=== PATIENT | male | born 1960 | race Caucasian/White ===

== ENCOUNTER 2017-03-01 15:34 | Emergency (ER) | payer BC ==
[2017-03-01] MEDS ORDERED: DIPH,PERTUS(ACELL)TETVAC-LF 0.5 ML VIAL IM ONE (15:57)
--- NOTE | 2017-03-01 16:01 | ED ---
Upper Extremity HPI - General Chief Complaint: Extremity Injury, Upper Stated Complaint: Hand Injury Time Seen by Provider: 03/01/17 15:49 Source: patient, RN notes reviewed, old records reviewed Mode of arrival: ambulatory Limitations: no limitations - History of Present Illness Initial Comments: Patient is a 48-year-old male with chief complaint of laceration over the fifth and fourth left proximal fingers. Patient reports that his hand got caught in a wall and floor tiler. Patient reports that he is right-handed. Patient states that he does have range of motion of his fingers. He states that the laceration extends from the fifth to the fourth finger at the base of the fingers. As well as the second laceration over the anterior proximal 5th digit. Patient states that he has full range of motion of his fingers. - Related Data Home Medications Medication Instructions Recorded Confirmed Atorvastatin [Lipitor] 40 mg PO HS 01/25/16 03/01/17 Escitalopram Oxalate [Lexapro] 20 mg PO DAILY 01/25/16 03/01/17 amLODIPine BESYLATE/BENAZEPRIL 1 cap PO DAILY 01/25/16 03/01/17 [Lotrel 5-20 mg Capsule] Aspirin/Acetaminophen/Caffeine 1 tab PO Q6H PRN 03/01/17 03/01/17 [Excedrin Extra Strength Caplet] Previous Rx's Medication Instructions Recorded Cephalexin [Keflex] 500 mg PO Q6HR #40 cap 03/01/17 HYDROcodone/APAP 10-325MG [[place] 1 tab PO Q6H PRN #20 tab 03/01/17 10-325] Allergies Allergy/AdvReac Type Severity Reaction Status Date / Time No Known Allergies Allergy Verified 03/01/17 16:12 Review of Systems ROS Statement: Those systems with pertinent positive or pertinent negative responses have been documented in the HPI. ROS Other: All systems not noted in ROS Statement are negative. Past Medical History Past Medical History: No Reported History History of Any Multi-Drug Resistant Organisms: None Reported Past Surgical History: Hernia Repair Past Psychological History: Anxiety Smoking Status: Never smoker Past Alcohol Use History: Daily Past Drug Use History: None Reported General Exam - General Exam Comments Initial Comments: Pleasant 56 year old male, no distress. Limitations: no limitations Head exam: Present: atraumatic, normocephalic, normal inspection Eye exam: Present: normal appearance, PERRL, EOMI. Absent: scleral icterus, conjunctival injection, periorbital swelling ENT exam: Present: normal exam, mucous membranes moist Neck exam: Present: normal inspection. Absent: tenderness, meningismus, lymphadenopathy Respiratory exam: Present: normal lung sounds bilaterally. Absent: respiratory distress, wheezes, rales, rhonchi, stridor Cardiovascular Exam: Present: regular rate, normal rhythm, normal heart sounds. Absent: systolic murmur, diastolic murmur, rubs, gallop, clicks GI/Abdominal exam: Present: soft, normal bowel sounds. Absent: distended, tenderness, guarding, rebound, rigid Extremities exam: Present: normal inspection, full ROM, normal capillary refill. Absent: tenderness, pedal edema, joint swelling, calf tenderness Left Forearm Wrist exam: Present: normal inspection, full ROM Hand L/R Front: 1 - laceration 2 - laceration (Skin removed, unable to fully close.) Back exam: Present: normal inspection Neurological exam: Present: alert, oriented X3, CN II-XII intact Psychiatric exam: Present: normal affect, normal mood Skin exam: Present: warm, dry, intact, normal color. Absent: rash Course Vital Signs 03/01/17 03/01/17 15:44 17:40 Temperature 97.6 F 98.5 F Pulse Rate 70 60 Respiratory 16 18 Rate Blood Pressure 151/80 129/87 O2 Sat by Pulse 99 98 Oximetry Procedures - Laceration Laceration #1 Site: hand (base of fourth finger ) Size (cm): 4 Description: linear Depth: simple, single layer Anesthetic Used: benzocaine 0.25% Anesthesia Technique: nerve block Amount (mls): 5 Pre-repair: wound explored, irrigated extensively Type of Sutures: nylon Size of Sutures: 6-0 Number of Sutures: 12 Technique: simple, interrupted Patient Tolerated Procedure: well, no complications Medical Decision Making - Medical Decision Making Patient is a 56 year old male with laceration over fourth and fifth fingers after hand was smashed in a wall and floor tiler. Patient has a fracture to proximal fifth phalanx. Patient given TDAP and 1g cefazolin IM. Wound was soaked with normal saline and soap, throughly irrigated. Sutures placed around fourth finger at the laceration, 12 sutures placed. No significant tendon involvement in jeither fingers. Fifth finger has no viable skin to close the wound, the wound was approximated with 7 absorbable vicryl sutures. Patient tolerated procedure well. Patient was placed in tube gauze around fifth finger and bacitration applied. Patient also given a metal splint. dressing applied around the fourth finger. Patientplaced on keflex and given pain medication. Patient advised to follow up with Dr. Zhao the hand surgeon on Friday. Patient agrees with treatment plan and will comply. Discussed remain in finger tube gauze and splint until orthopedic physicain appointment. Disposition Clinical Impression: Open fracture of finger of left hand, Finger laceration Disposition: HOME SELF-CARE Condition: Good Instructions: Hand Fracture (ED) Additional Instructions: Patient advised to follow-up with hand surgeon on Friday. Patient needs to keep the finger covered at all times. Take antibiotics as directed. Return to the emergency department if any alarming signs or symptoms occur. Prescriptions: Cephalexin [Keflex] 500 mg PO Q6HR #40 cap HYDROcodone/APAP 10-325MG [[place] 10-325] 1 tab PO Q6H PRN #20 tab PRN Reason: Pain Referrals: Patricio Senior MD [Primary Care Provider] - 1-2 days Chacorta Zhao DO [Doctor of Osteopathic Medicine] - 1-2 days Time of Disposition: 17:47
[2017-03-01] MEDS ORDERED: ceFAZolin 1,000 MG VIAL IM STA (16:16)
--- NOTE | 2017-03-01 16:33 | XR ---
EXAMINATION TYPE: XR hand complete LT DATE OF EXAM: 03/01/2017 4:07 PM COMPARISON: 07/11/2010 HISTORY: 56-year-old male with laceration to the fourth and fifth digits from 4 cm, pain. TECHNIQUE: 3 views FINDINGS: There is soft tissue injury to the fourth and fifth digits though with a minimally displaced oblique fracture of the fifth proximal phalanx extending from the midshaft and intra-articularly into the PIP joint. Suggestion of a small dorsal loose body at the radiocarpal joint. No additional acute fractur e or dislocation. IMPRESSION: Soft tissue injuries to the fourth and fifth digits with a minimally displaced oblique fracture of th e fifth proximal phalanx. Intra-articular extension of fracture into the fifth PIP joint.
[2017-03-01 17:41] VITALS: BP 129/87; PULSE 60; RESP 18; TEMP 98.5
== END 2017-03-01 17:58 | disposition home or self-care (01) ==
LOC: EC 15:34
DX: S62.617B Displaced fracture of proximal phalanx of left little finger, initial encounter for open fracture (principal); S61.215A Laceration without foreign body of left ring finger without damage to nail, initial encounter; F41.9 Anxiety disorder, unspecified; Z23 Encounter for immunization; Z79.899 Other long term (current) drug therapy; W31.89XA Contact with other specified machinery, initial encounter
CPT/HCPCS: 99283 ×2; 12002 ×2; 96372 ×2; 90471 ×2; 73130; 90715; J0690

== ENCOUNTER → 2019-02-11 | Outpatient (CLI) | payer BC ==
--- NOTE | 2019-02-11 18:34 | PN ---
PROGRESS NOTE DATE OF SERVICE: 02/11/2019 58-year-old gentleman has been followed in [facility] for treatment of obstructive sleep apnea-hypopnea syndrome. The patient continued to use his CPAP equipment every night, sometimes has problem because his nasal pillow mask is old and head gear stretched. [place] Sleepiness Scale today is increased to 15. MEDICATIONS: Lexapro, Lotrel, atorvastatin. PHYSICAL EXAM: Patient in no distress. BP 122/81, HR 57, RR 14, height 5 feet 9 and one half inches, weight 191.8 pounds with a body mass index 27.8, temperature 97.2, oxygen saturation at room air 96%. OROPHARYNX: Low position of soft palate, Mallampati 2-3. Neck Supple, no JVD. Thyroid is not palpable. LUNGS Clear to percussion and to auscultation. Good air exchange. No wheezing or rhonchi. HEART S1, S2 regular. No murmurs, gallops, or rubs. ABDOMEN Soft and nontender. Bowel sounds are present. No organomegaly appreciated. EXTREMITIES No clubbing or cyanosis. 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 Cranial nerves 2 to 7 intact. There is no fasciculation or atrophy. noted. No focal deficits observed. IMPRESSION: 1. Obstructive sleep apnea-hypopnea syndrome. The patient continued to use CPAP equipment, benefitting from treatment. 2. History of anxiety. 3. Hyperlipidemia. 4. History of nasal septum deviation. 5. Hypertension. PLAN: 1. Patient will continue to use CPAP equipment every night for the whole night. 2. Prescription for all necessary CPAP supplies including nasal pillow mask, tube, filters. 3. Sleep hygiene with regular time in bed for at least 8 hours. 4. No driving if feeling sleepiness. Thank you very much for allowing me to participate in management of your patient. Sincerely, Fadi Rivas MD, PhD, FAASM Diplomat of [employer] [employer] [place] [employer] Administration Vice President of [facility] [place] MMODL / IJN: [id number] /
== END | disposition home or self-care (01) ==
LOC: SLEEP 16:50
PROVIDERS: ATTEND Internal Medicine
DX: G47.33 Obstructive sleep apnea (adult) (pediatric) (principal); E78.5 Hyperlipidemia, unspecified; I10 Essential (primary) hypertension; F41.9 Anxiety disorder, unspecified; Z87.09 Personal history of other diseases of the respiratory system; Z99.89 Dependence on other enabling machines and devices; Z79.899 Other long term (current) drug therapy

== ENCOUNTER → 2019-04-08 | Outpatient (CLI) | payer BC ==
--- NOTE | 2019-04-08 20:07 | PN ---
PROGRESS NOTE DATE OF SERVICE: 04/08/2019 58-year-old gentleman who has been followed in Sleep Center for treatment of obstructive sleep apnea-hypopnea syndrome. Today is his first visit after he received new CPAP unit. The patient is able to use CPAP equipment every night for the whole night without significant problem except sometimes he feels that his mouth is dry. He is using a nasal pillow mask. I checked his CPAP unit, range of the pressure 5-10. Most of the time pressure is 8.8 cm of water. Usage is 100% of the time more than 4 hours, average 7.7 hours per night. Leak is 28 L/minute which is slightly high for the nasal pillow mask and possibly indicates the patient opening his mouth. Apnea-hypopnea index 2.3, which is absolutely normal. MEDICATIONS: Lexapro, Lotrel and atorvastatin. PHYSICAL EXAM: Patient in no distress. BP 110/72, HR 59, RR 14, weight 194.6, temperature 97.9. Oxygen saturation at room air 94%. Oropharynx: Low position of soft palate, Mallampati 2-3. Neck Supple, no JVD. Thyroid is not palpable. LUNGS Clear to percussion and to auscultation. Good air exchange. No wheezing or rhonchi. HEART S1, S2 regular. No murmurs, gallops, or rubs. ABDOMEN Soft and nontender. Bowel sounds are present. No organomegaly appreciated. EXTREMITIES No clubbing or cyanosis. 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 Cranial nerves 2 to 7 intact. There is no fasciculation or atrophy. noted. No focal deficits observed. IMPRESSION: 1. Obstructive sleep apnea-hypopnea syndrome. The patient demonstrated 100% compliance with treatment benefitting from treatment. 2. History of anxiety. 3. Hyperlipidemia. 4. History of nasal septum deviation. 5. Hypertension. PLAN: 1. Patient will continue to use CPAP equipment every night. 2. Prescription for additional chinstrap to prevent opening mouth during the sleep. 3. Sleep hygiene with regular time for at least 8 hours. 4. No driving if feeling sleepiness. 5. Patient continues to feel sleepy. [place] Sleepiness Scale today is 18. 6. If patient will continue to feel sleepy, may consider to proceed with polysomnogram and multiple sleep latency test for objective evaluation of his sleepiness, rule out any additional diagnosis of hypersomnia. Thank you very much for allowing me to participate in management of patient. Sincerely, Fadi Rivas MD, PhD, FAASM Diplomat of [place] [employer] [place] [employer] Products Mechanical Design Engineer of [facility] [place] NEAL / MARTINEZ: [id number] /
== END | disposition home or self-care (01) ==
LOC: SLEEP 16:41
PROVIDERS: ATTEND Internal Medicine
DX: G47.33 Obstructive sleep apnea (adult) (pediatric) (principal); E78.5 Hyperlipidemia, unspecified; I10 Essential (primary) hypertension; F41.9 Anxiety disorder, unspecified; Z87.09 Personal history of other diseases of the respiratory system; Z99.89 Dependence on other enabling machines and devices; Z79.899 Other long term (current) drug therapy

== ENCOUNTER → 2019-12-15 | Outpatient (CLI) | payer BC ==
--- NOTE | 2019-12-15 17:34 | PN ---
PROGRESS NOTE DATE OF SERVICE: 12/15/2019 59-year-old gentleman has been followed in Sleep Center for treatment of obstructive sleep apnea-hypopnea syndrome and excessive daytime sleepiness. Presently, patient continued to use his CPAP equipment every night for the whole night. No snoring with the machine, but he still feels sleepiness sometimes during the day. [place] Sleepiness Scale today increased to 12. Presently, we proceeded with CPAP at night followed by multiple sleep latency test and I discussed results of the sleep study with patient in detail. During CPAP titration high pressure was 11 cm of water. At that pressure, the patient respiration was fully normalized. Apnea-hypopnea index was 0. On the following day, patient had 5 naps. He fell asleep on first 3 naps, but did not fall asleep from last two naps. 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 I checked the patient CPAP unit, range of the pressure 5-10 cm of water. Usage is 30 out of 30 nights for more than 4 hours with average usage is 7.6 hours per night. Average pressure is 9 cm of water. Leak is 32 L/minute. The apnea-hypopnea index reading is 2.7. Occasionally patient might open his mouth. Patient using AirFit P10 nasal pillow mask. MEDICATIONS: Lexapro and Lotrel in the morning, Atorvastatin at night. PHYSICAL EXAM: Patient in no distress. BP 128/81, HR 62, RR 16, height 5 feet 10-1/2 inches, weight 196.4, body mass index 27.7, temperature 97.0, oxygen saturation at room air 96%. Oropharynx: Low position of soft palate. Mallampati 3. NECK: Supple, no JVD. Thyroid is not palpable. LUNGS: Clear to percussion and to auscultation. Good air exchange. No wheezing or rhonchi. HEART: S1, S2 regular. No murmurs, gallops, or rubs. ABDOMEN: Soft and nontender. Bowel sounds are present. No organomegaly appreciated. EXTREMITIES: No clubbing or cyanosis. CUT OFF SAWYER LOG: Awake, alert, and oriented X3. Cranial nerves 2 to 7 intact. There is no fasciculation or atrophy. noted. No focal deficits observed. IMPRESSION: 1. Obstructive sleep apnea-hypopnea syndrome. The patient demonstrated great compliance with treatment benefitting from treatment. 2. Slightly high leak reading from the machine for the usage of nasal pillow mask. Possibly patient opens his mouth. 3. 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 Subsequently, the MSLT could not fully rule out hypersomnia, especially with also finding 1 sleep onset REM period. 4. History of anxiety. 5. Hyperlipidemia. 6. History of nasal septum deviation. 7. Hypertension. PLAN: 1. Patient will continue to use CPAP equipment every night for the whole night. 2. Prescription for the chinstrap. The patient will monitor for leak, possibly adjustment of head gear for AirFit P10. 3. I will change range of the pressure in the machine from 8-11 range. 4. We still may consider to use medications to prevent any excessive daytime sleepiness in the future. 5. Patient will try to take Lexapro in the evening instead of morning time. Thank you very much for allowing me to participate in management of your patient. Sincerely, Fadi Rivas MD, PhD, FAASM Diplomat of [place] [employer] [place] [employer] Customer Facilities Supervisor of [facility] [place] MMODL / FAUSTINAN: [phone] /
== END | disposition home or self-care (01) ==
LOC: SLEEP 16:21
PROVIDERS: ATTEND Internal Medicine
DX: G47.33 Obstructive sleep apnea (adult) (pediatric) (principal); E78.5 Hyperlipidemia, unspecified; I10 Essential (primary) hypertension; Z87.39 Personal history of other diseases of the musculoskeletal system and connective tissue; Z86.59 Personal history of other mental and behavioral disorders; Z99.89 Dependence on other enabling machines and devices; Z79.899 Other long term (current) drug therapy

== ENCOUNTER 2020-08-05 20:37 | Emergency (ER) | payer BC ==
[2020-08-05 20:42] VITALS: BP 138/82; PULSE 67; RESP 20; TEMP 97.9
[2020-08-05] MEDS ORDERED: LIDOCAINE/EPINEPHR/TETRACAINE 5 ML BOTTLE TOPICAL ONE (20:47)
[2020-08-05] MEDS ORDERED: AMOXIC-POT CLAV 875MG STARTER PACK 2 TAB BTL PO STA (20:47)
--- NOTE | 2020-08-05 20:51 | ED ---
Animal Bite HPI - General Chief Complaint: Animal Bite Stated Complaint: Dog Bite Time Seen by Provider: 08/05/20 20:43 Source: patient Mode of arrival: ambulatory Limitations: no limitations - History of Present Illness Initial Comments: 60-year-old male presented for right cheek dog bite. Patient states just prior to arrival his vaccinated indoor dog bit the right side of his face. He states that dog is a rescue and can be crabby. Denies through and through cheek lesion. Patient states he was not sure if he needed sutures or not and thus presented to [facility] ER. Patient states that hsi tdap is for sure updated in the last 5-10 yeats. Denies other areas of injury or complaint. Patient appears well nontoxic in no acute distress. - Related Data Home Medications Medication Instructions Recorded Confirmed Atorvastatin [Lipitor] 40 mg PO HS 01/25/16 03/01/17 Escitalopram Oxalate [Lexapro] 20 mg PO DAILY 01/25/16 03/01/17 amLODIPine BESYLATE/BENAZEPRIL 1 cap PO DAILY 01/25/16 03/01/17 [Lotrel 5-20 mg Capsule] Aspirin/Acetaminophen/Caffeine 1 tab PO Q6H PRN 03/01/17 03/01/17 [Excedrin Extra Strength Caplet] Previous Rx's Medication Instructions Recorded Cephalexin [Keflex] 500 mg PO Q6HR #40 cap 03/01/17 HYDROcodone/APAP 10-325MG [[place] 1 tab PO Q6H PRN #20 tab 03/01/17 10-325] Amoxicillin/Potassium Clav 1 tab PO Q12HR 7 Days #14 tab 08/05/20 [Augmentin 875-125 Tablet] Allergies Allergy/AdvReac Type Severity Reaction Status Date / Time No Known Allergies Allergy Verified 08/05/20 20:42 Review of Systems ROS Statement: Those systems with pertinent positive or pertinent negative responses have been documented in the HPI. ROS Other: All systems not noted in ROS Statement are negative. Past Medical History Past Medical History: No Reported History History of Any Multi-Drug Resistant Organisms: None Reported Past Surgical History: Hernia Repair Past Psychological History: Anxiety Smoking Status: Never smoker Past Alcohol Use History: Daily Past Drug Use History: None Reported General Exam - General Exam Comments Initial Comments: General: The patient is awake and alert, in no distress, and does not appear acutely ill. Eye: Pupils are equal, round and reactive to light, extra-ocular movements are intact. No nystagmus. There is normal conjunctiva bilaterally. No signs of icterus. Ears, nose, mouth and throat: There are moist mucous membranes and no oral lesions. Musculoskeletal: Normal ROM, no tenderness. Strength 5/5. Sensation intact. Pulses equal bilaterally 2+. Neurological: A&O x 3. CN II-XII intact grossly, There are no obvious motor or sensory deficits. Coordination appears grossly intact. Speech is normal. Skin: Skin is warm and dry and no rashes, v shaped laceration of the right cheek just lateral to the corner of the mouth. no throught and through injury. there is just superior to main laceration,small more superficial laceration. Psychiatric: Cooperative, appropriate mood & affect, normal judgment. Limitations: no limitations Course Vital Signs 08/05/20 20:40 Temperature 97.9 F Pulse Rate 67 Respiratory 20 Rate Blood Pressure 138/82 O2 Sat by Pulse 98 Oximetry Procedures - Laceration Laceration #1 Consent Obtained: verbal consent Indication: laceration Site: face Size (cm): 2 Description: irregular Depth: simple, single layer Pre-repair: wound explored, irrigated extensively, deep structures intact Type of Sutures: nylon Size of Sutures: 6-0 Number of Sutures: 3 Technique: simple, interrupted Patient Tolerated Procedure: well, no complications Medical Decision Making - Medical Decision Making 60yo male presenting for cc of dog bite to face, tdap UTD. Wound edges dont approximate naturally wants sutures despite infection risk Used topical LET. Closed wound after irrigation/cleansing with iodine. Patient tolerated procedure well. Abx initiated. Discussed case with Dr. Kaufman who is agreeable to care plan and discharge-pt agreeable to care plan and discharge. Disposition Clinical Impression: Dog bite of face Disposition: HOME SELF-CARE Instructions (If sedation given, give patient instructions): Animal Bite (ED) Additional Instructions: Please use medication as discussed. Please follow-up with family doctor in the next 2 days. Return for suture removal here in 5 days. Watch for infection. Please return to emergency room if the symptoms increase or worsen or for any other concerns. Prescriptions: Amoxicillin/Potassium Clav [Augmentin 875-125 Tablet] 1 tab PO Q12HR 7 Days #14 tab Is patient prescribed a controlled substance at d/c from ED?: No Referrals: Senior,Patricio, MD [Primary Care Provider] - 1-2 days Time of Disposition: 22:22
== END 2020-08-05 22:38 | disposition home or self-care (01) ==
LOC: EC 20:37
DX: S01.451A Open bite of right cheek and temporomandibular area, initial encounter (principal); F41.9 Anxiety disorder, unspecified; Z79.899 Other long term (current) drug therapy; W54.0XXA Bitten by dog, initial encounter; Y92.009 Unspecified place in unspecified non-institutional (private) residence as the place of occurrence of the external cause
CPT/HCPCS: 12011; 99283

== ENCOUNTER → 2022-01-03 | Outpatient (CLI) | payer BC ==
[2022-01-03 18:23] LABS: HCT 44.9 % (39.6-50.0); HGB 14.8 g/dL (13.0-17.0); MCH 30.6 pg (27.0-32.0); MCV 92.8 fL (80.0-97.0); Mean Platelet Volume 9.8 fL (9.5-12.2); NRBC Per 100 WBC 0 /100 WBCS (0.0-0.0); Platelet Count 273 X 10*3/uL (140-440); RBC 4.84 X 10*6/uL (4.40-5.60); WBC 7.55 X 10*3/uL (4.50-10.00)
[2022-01-03 18:33] LABS: African American GFR (CKD) 82.4 (60.0-200.0); Anion Gap 12.1 mmol/L (10.00-18.00); Blood Urea Nitrogen 17.9 mg/dL (9.0-27.0); Carbon Dioxide 25.9 mmol/L (20.0-27.5); Non-African American GFR(CKD) 71.1 (60.0-200.0); Potassium 4.3 mmol/L (3.5-5.5)
[2022-01-04 12:38] LABS: Coronavirus SARS CoV-2 Not Detected (Not Detected)
== END | disposition home or self-care (01) ==
LOC: LABPAT 12:46
PROVIDERS: ATTEND Internal Medicine Interventional Cardiology
DX: Z01.812 Encounter for preprocedural laboratory examination (principal); Z20.822 Contact with and (suspected) exposure to COVID-19; I48.11 Longstanding persistent atrial fibrillation
CPT/HCPCS: 80051; 82565; 84520; 85027; 36415; U0003; C9803; U0005

== ENCOUNTER 2022-01-11 08:07 | Day surgery (SDC) | payer BC ==
[2022-01-09 10:58] VITALS: BMI 27.2
[~2022-01-11 08:07] MED LIST: SODIUM CHLORIDE 0.9% 1,000 ML IV SCH
[2022-01-11 09:18] VITALS: TEMP 98
[2022-01-11] MEDS ORDERED: PROPOFOL 10 MG/ML 20 ML VIAL IV ONE (09:25)
[2022-01-11] MEDS ORDERED: MIDAZOLAM 2 MG/2 ML VIAL ONE (09:25)
[2022-01-11] MEDS ORDERED: PANTOPRAZOLE 40 MG TABLET PO PRN (09:49)
[2022-01-11] MEDS ORDERED: LORazepam 0.5 MG TAB PO PRN (09:49)
--- NOTE | 2022-01-11 09:54 | P.PCN ---
Date of Procedure: 01/11/22 Description of Procedure: Indication: Atrial fibrillation, evaluation of left atrial appendage Procedure Description: After explaining the procedure to the patient, it's risk and complications, blood pressure, heart rate and O2 saturation were monitored. The throat was sprayed with Cetacaine. Patient received sedation per anesthesia department. The probe was introduced into the esophagus without difficulty. Images were obtained. Following that, the probe was removed. There was no immediate complication. Findings: Left atrial size is dilated, left atrial appendage shows a thrombus. Left ventricle size is normal mild global hypokinesis was noted. Ejection fraction 45-50%. The aortic valve, mitral valve and tricuspid valve are normal. Descending thoracic aorta is normal. No pericardial effusion was noted. Contrast bubble study revealed no shunting across the intra-atrial septum. doppler: Pulse wave and color Doppler were obtained and showed moderate mitral was mild aortic and tricuspid regurgitation. There was no shunting across the intra- atrial septum. Conclusion: 1. Dilated left atrium with left atrial appendage thrombus 2. Mildly impaired systolic function with global hypokinesis 3. Moderate mitral regurgitation 4. Mild aortic and tricuspid regurgitation 5. No shunting across the intra-atrial septum.
[2022-01-11] MEDS ORDERED: SODIUM CHLORIDE 0.9% 1,000 ML IV SCH (10:00)
[2022-01-11 10:05] VITALS: RESP 18
[2022-01-11 11:04] VITALS: BP 114/79; PULSE 83
[2022-01-11] MEDS ORDERED: RIVAROXABAN 20 MG TAB PO SCH (21:00)
[2022-01-11] MEDS ORDERED: ESCITALOPRAM 20 MG TAB PO SCH (21:00)
[2022-01-11] MEDS ORDERED: ATORVASTATIN 40 MG TAB PO SCH (21:00)
[2022-01-11] MEDS ORDERED: METOPROLOL TARTRATE 50 MG TAB PO SCH (21:00)
[2022-01-12] MEDS ORDERED: LISINOPRIL-HCTZ 20-12.5 MG 1 EACH TAB PO SCH (09:00)
== END 2022-01-11 11:33 | disposition home or self-care (01) ==
LOC: CATHCVL 08:07
PROVIDERS: ATTEND Internal Medicine Interventional Cardiology
DX: I08.3 Combined rheumatic disorders of mitral, aortic and tricuspid valves (principal); I10 Essential (primary) hypertension; E78.5 Hyperlipidemia, unspecified; G47.33 Obstructive sleep apnea (adult) (pediatric); Z87.891 Personal history of nicotine dependence; I73.00 Raynaud's syndrome without gangrene; K21.9 Gastro-esophageal reflux disease without esophagitis; Z79.01 Long term (current) use of anticoagulants; Z79.899 Other long term (current) drug therapy
CPT/HCPCS: 93312; 93320; 93325; J2250; J2704

== ENCOUNTER → 2022-02-12 | Outpatient (CLI) | payer BC ==
[2022-02-12 22:30] LABS: HCT 41.5 % (39.6-50.0); MCH 31.1 pg (27.0-32.0); MCHC 33.7 g/dL (32.0-37.0); MCV 92.2 fL (80.0-97.0); Mean Platelet Volume 9.7 fL (9.5-12.2); NRBC Per 100 WBC 0 /100 WBCS (0.0-0.0); Platelet Count 269 X 10*3/uL (140-440); RDW 12.5 % (11.5-14.5); WBC 5.54 X 10*3/uL (4.50-10.00)
[2022-02-12 23:23] LABS: African American GFR (CKD) 76.4 (60.0-200.0); Anion Gap 14.3 mmol/L (10.00-18.00); Blood Urea Nitrogen 16.3 mg/dL (9.0-27.0); Carbon Dioxide 24.9 mmol/L (20.0-27.5); Potassium 4.4 mmol/L (3.5-5.5)
== END | disposition home or self-care (01) ==
LOC: LABPAT 16:08
PROVIDERS: ATTEND Internal Medicine Interventional Cardiology
DX: Z01.812 Encounter for preprocedural laboratory examination (principal); I48.11 Longstanding persistent atrial fibrillation
CPT/HCPCS: 80051; 82565; 84520; 85027

== ENCOUNTER 2022-02-19 06:01 | Day surgery (SDC) | payer BC ==
[2022-02-15 13:18] VITALS: BMI 26.5
[~2022-02-19 06:01] MED LIST changes: +LACTATED RINGERS 1,000 ML IV SCH
[2022-02-19 06:23] VITALS: TEMP 97.9
[2022-02-19 07:02] VITALS: RESP 16
[2022-02-19] MEDS ORDERED: LIDOCAINE 1% INJ 10MG/ML (20 ML MDV) ONE (07:10)
[2022-02-19] MEDS ORDERED: PROPOFOL 10 MG/ML 20 ML VIAL IV ONE (07:10)
[2022-02-19] MEDS ORDERED: NON FORMULARY DRUG (Esomeprazole Magnesium [Nexium 24hr] 20 MG Tablet) PO PRN (07:23)
[2022-02-19] MEDS ORDERED: LORazepam 0.5 MG TAB PO PRN (07:23)
--- NOTE | 2022-02-19 07:28 | P.PCN ---
Date of Procedure: 02/19/22 Description of Procedure: Indication: Evaluation of left atrial appendage in a patient with atrial fibrillation Procedure Description: After explaining the procedure to the patient, it's risk and complications, blood pressure, heart rate and O2 saturation were monitored. The throat was sprayed with Cetacaine. Patient received sedation per anesthesia department. The probe was introduced into the esophagus without difficulty. Images were obtained. Following that, the probe was removed. There was no immediate complication. Findings: The atrial size is mildly dilated, left atrial appendage is normal. Left ventricle size is normal with ejection fraction 40-45%. The aortic valve, mitral valve, and tricuspid valve are normal. Descending thoracic aorta is normal. Contrast bubble study revealed no shunting across the intra-atrial septum. There is mild limitation of the ascending aorta. No pleural effusion was noted. Doppler: Pulse wave and color Doppler were obtained and revealed moderate mitral was mild aortic and tricuspid regurgitation. There is no shunting across the intra- atrial septum. Conclusion: 1. Moderately dilated left atrium with normal appearance of the left atrial appendage 2. Normal in size with mildly to moderately impaired left ventricle systolic function 3. Moderate mitral was mild aortic and tricuspid regurgitation 4. No shunting across the intra-atrial septum 5. Normal appearance of the descending thoracic aorta.
--- NOTE | 2022-02-19 07:29 | P.PCN ---
Date of Procedure: 02/19/22 Description of Procedure: Cardioversion: Indication: atrial fibrillation After explaining the procedure to the patient as well as the risks and the complication, after obtaining sedated state per anesthesia department and obtaining transesophageal echocardiogram synchronize biphasic cardioversion using 120 J was unsuccessful in restoring sinus mechanism subsequently a cardioversion with 200 J was successful. There was no immediate complications.
[2022-02-19] MEDS ORDERED: SODIUM CHLORIDE 0.9% 1,000 ML IV SCH (07:30)
[2022-02-19] MEDS ORDERED: [UNRECOGNIZED DRUG - OTHER] PO SCH (09:00)
[2022-02-19] MEDS ORDERED: BENAZEPRIL PO SCH (09:00)
[2022-02-19] MEDS ORDERED: HYDROCHLOROTHIAZIDE PO SCH (09:00)
[2022-02-19] MEDS ORDERED: METOPROLOL TARTRATE 50 MG TAB PO SCH (09:00)
[2022-02-19 09:44] VITALS: BP 94/66; PULSE 54
[2022-02-19] MEDS ORDERED: ESCITALOPRAM 20 MG TAB PO SCH (21:00)
[2022-02-19] MEDS ORDERED: ATORVASTATIN 40 MG TAB PO SCH (21:00)
[2022-02-19] MEDS ORDERED: RIVAROXABAN 20 MG TAB PO SCH (21:00)
== END 2022-02-19 09:10 | disposition home or self-care (01) ==
LOC: CATHCVL 06:01
PROVIDERS: ATTEND Internal Medicine Interventional Cardiology
DX: I48.11 Longstanding persistent atrial fibrillation (principal); Z20.822 Contact with and (suspected) exposure to COVID-19
CPT/HCPCS: 93312; 93320; 93005; 93325; 92960; 87635; J2001; J2704

== ENCOUNTER → 2022-06-01 | Outpatient (CLI) | payer BC ==
[2022-06-01 16:51] LABS: ALT 43 U/L (10-49); AST 27 U/L (14-35); Chol/HDL Ratio 4.14 Ratio; LDL Cholesterol,Calculated 102.8 mg/dL (0.0-131.0)
== END | disposition home or self-care (01) ==
LOC: LABWHC1 08:17
PROVIDERS: ATTEND Nurse Practitioner Adult Health
DX: E78.2 Mixed hyperlipidemia (principal)
CPT/HCPCS: 36415; 80061; 84450; 84460

== ENCOUNTER → 2022-06-18 | Outpatient (CLI) | payer BC ==
--- NOTE | 2022-06-18 16:13 | CT ---
EXAMINATION TYPE: CT angio chest CT DLP: 628.30 mGycm, Automated exposure control for dose reduction was used. DATE OF EXAM: 06/18/2022 3:54 PM COMPARISON: None. CLINICAL INDICATION:Male, 62 years old with history of I71.2 Thoracic aortic aneurysm; Thoracic aorti c aneurysm w/o rupture. Pt not reporting any issues at this time. TECHNIQUE/CONTRAST: CTA scan of the thorax is performed without and with IV Contrast, patient injected with 100 mL of Iso nile 370, pulmonary embolism protocol. MIP images are created and reviewed. 3-D reformats were creat ed a separate workstation. FINDINGS: Lungs/Pleura: No evidence of focal consolidation, pleural effusion or pneumothorax. 7 mm peripheral l eft lower lobe pulmonary nodule (series 7, image 180). Airway: Large airways are patent. Heart: Heart is within normal limits for size. Mild coronary artery calcifications. No pericardial ef fusion. Vasculature: Patent three-vessel arch without evidence of stenosis. Ascending fusiform thoracic aorti c aneurysm measuring up to 4.4 cm. No evidence for dissection or intramural hematoma. The descending thoracic aorta measures up to 2.8 cm. No evidence for central pulmonary embolism. The SMA, celiac axi s, and 2 right-sided and visualized single left renal arteries are widely pain. Mediastinum: No gross evidence of adenopathy. Musculoskeletal: No acute osseous abnormalities Soft Tissues: Increased density posterior to the nipples bilaterally consistent with gynecomastia. Lower neck: No significant findings. Upper Abdomen: Right renal cysts. IMPRESSION: * Ascending thoracic aortic aneurysm measuring up to 4.4 cm. * 7 mm left lower lobe pulmonary nodule. Follow-up CT chest examination in 6-12 months is recommende d.
== END | disposition home or self-care (01) ==
LOC: RADCTMAIN 15:05
PROVIDERS: ATTEND Internal Medicine Interventional Cardiology
DX: I71.2 Thoracic aortic aneurysm, without rupture (principal); R91.1 Solitary pulmonary nodule
CPT/HCPCS: 71275; Q9967

== ENCOUNTER 2022-08-13 10:30 | Day surgery (SDC) | payer BC ==
[2022-08-09 15:52] VITALS: BMI 27.2
[~2022-08-13 10:30] MED LIST changes: +DEXAMETHASONE SOD PHOSPHATE 4 MG/ML 1 ML VIAL IV ONE; +HYDROmorphone 0.5 MG/0.5 ML SYRINGE IVP PRN; -LACTATED RINGERS 1,000 ML IV SCH; +ONDANSETRON 4 MG/2 ML VIAL IVP ONE; -SODIUM CHLORIDE 0.9% 1,000 ML IV SCH
[2022-08-13] MEDS: SODIUM CHLORIDE 0.9% 1,000 ML IV SCH (11:05)
[2022-08-13 11:15] LABS: Basophils % (A) 1 %; Eosinophils # (A) 0.5 k/uL (0-0.7); Eosinophils % (A) 8 %; HGB 14.7 gm/dL (13.0-17.5); Lymphocytes # (A) 1.4 k/uL (1.0-4.8); Lymphocytes % (A) 23 %; MCH 31.5 pg (25.0-35.0); MCHC 33.3 g/dL (31.0-37.0); MCV 94.6 fL (80.0-100.0); Mean Platelet Volume 7.7; Monocytes # (A) 0.4 k/uL (0-1.0); Monocytes % (A) 7 %; Neutrophils # (A) 3.5 k/uL (1.3-7.7); Neutrophils % (A) 59 %; Platelet Count 287 k/uL (150-450); RBC 4.65 m/uL (4.30-5.90); RDW 13.1 % (11.5-15.5); WBC 5.8 k/uL (3.8-10.6)
[2022-08-13 11:20] LABS: Calcium 9.1 mg/dL (8.4-10.2); Potassium 4.2 mmol/L (3.5-5.1)
[2022-08-13] MEDS ORDERED: MIDAZOLAM 2 MG/2 ML VIAL ONE (12:08)
[2022-08-13] MEDS ORDERED: fentaNYL (PF) 50 MCG/ML 2 ML AMP ONE (12:08)
[2022-08-13] MEDS ORDERED: SUCCINYLCHOLINE CHLORIDE 200 MG/10 ML VIAL IV ONE (12:08)
[2022-08-13] MEDS ORDERED: ePHEDrine 50 MG/ML 1 ML VIAL ONE (12:08)
[2022-08-13] MEDS ORDERED: PROPOFOL 10 MG/ML 20 ML VIAL IV ONE (12:08)
[2022-08-13] MEDS ORDERED: HEPARIN SODIUM,PORCINE 10,000 UNIT/ML 1 ML VIAL ONE (12:08)
[2022-08-13] MEDS ORDERED: LIDOCAINE 2% INJ 20 MG/ML (2 ML VIAL) ONE (12:08)
[2022-08-13] MEDS ORDERED: PANTOPRAZOLE 40 MG TABLET PO PRN (12:33)
[2022-08-13] MEDS ORDERED: ACETAMINOPHEN IV (For NPO) 1,000 MG in EMPTY BAG 1 BAG IVPB ONE (12:33)
[2022-08-13] MEDS ORDERED: ACETAMINOPHEN TAB 325 MG TAB PO PRN (12:33)
--- NOTE | 2022-08-13 12:33 | P.HPCAR ---
History of Present Illness This is Dr. Lee dictating an H/P on this patient The patient was interviewed and examined IMPRESSION / ASSESSMENT: Persistent atrial fibrillation, recent onset Nonischemic cardio myopathy, global secondary to atrial fibrillation Moderate mitral regurgitation PLAN: Proceed with PVI Continue anticoagulation xarelto The patient had a lot of questions about radiation to the procedure I explained A. fib methods that use radiation and the don't use radiation I explained the concept of protecting the esophagus with esophageal deflection and the use of radiation along with it I assured him that or radiation levels are low and preset in our radiation system in the [employer] HPI Patient was found to be in atrial fibrillation earlier this year along with reduced LV systolic function about 40% Once he was converted to sinus rhythm his LV function normalized He is moderate MR and 2-D echo Stress test is normal He denies any fever chills cough expectoration orthopnea PND ROS: No fever chills or rigors, no cough, phlegm or expectoration, no nausea, vomiting or diarrhea, no hematuria, dysuria, no musculoskeletal complaints, no strokes or seizures, no skin lesions. EXAMINATION: 97.5F pulse rate in the 46-50 Normal respirations Blood pressure 123/60 mmHg Breath sounds are reduced bilaterally but there are no rhonchi no crackles Heart sounds are regular Abdomen soft Extremities warm no edema REVIEW OF LABS, ECG & MEDICAL DATA White count 5.8 thousand, hemoglobin 14.7 Sodium 140 potassium 4.2 BUN 12 and creatinine 1.0 Physical Exam Vitals: Vital Signs Temp Pulse Resp BP Pulse Ox 08/13/22 11:04 97.5 F L 46 L 18 123/68 98 Intake and Output 08/12/22 08/13/22 08/13/22 22:59 06:59 14:59 Intake Total 20 Balance 20 Intake: IV 20 Other: Weight 84.3 kg Past Medical History Past Medical History: Atrial Fibrillation, GERD/Reflux, Hyperlipidemia, Hypertension, Sleep Apnea/CPAP/BIPAP, Vascular Disorder Additional Past Medical History / Comment(s): SEE DR LEE'S H&P. Uses CPAP. Varicose veins. Raynaud's History of Any Multi-Drug Resistant Organisms: None Reported Past Surgical History: Hernia Repair Past Anesthesia/Blood Transfusion Reactions: No Reported Reaction Past Psychological History: Anxiety Smoking Status: Former smoker Past Alcohol Use History: Daily Additional Past Alcohol Use History / Comment(s): 1 ALCOHOLIC BEVERAGE A NIGHT Past Drug Use History: None Reported - Past Family History Sister(s) Family Medical History: Cancer Additional Family Medical History / Comment(s): thyroid cancer Physical Examination Vital Signs Temp Pulse Resp BP Pulse Ox 08/13/22 11:04 97.5 F L 46 L 18 123/68 98 Intake and Output 08/12/22 08/13/22 08/13/22 22:59 06:59 14:59 Intake Total 20 Balance 20 Intake: IV 20 Other: Weight 84.3 kg Results 08/13/22 11:06 08/13/22 11:06 CBC 08/13/22 Range/Units 11:06 WBC 5.8 (3.8-10.6) k/uL RBC 4.65 (4.30-5.90) m/uL Hgb 14.7 (13.0-17.5) gm/dL Hct 44.0 (39.0-53.0) % Plt Count 287 (150-450) k/uL Comprehensive Metabolic Panel 08/13/22 Range/Units 11:06 Sodium 140 (137-145) mmol/L Potassium 4.2 (3.5-5.1) mmol/L Chloride 101 (98-107) mmol/L Carbon Dioxide 29 (22-30) mmol/L BUN 12 (9-20) mg/dL Creatinine 1.03 (0.66-1.25) mg/dL Glucose 95 (74-99) mg/dL Calcium 9.1 (8.4-10.2) mg/dL Current Medications Generic Name Dose Route Start Last Admin Trade Name Freq PRN Reason Stop Dose Admin Hydromorphone HCl 0.5 mg 08/13/22 06:29 Hydromorphone 0.5 Mg/0.5 Ml Syringe IVP 08/14/22 06:30 Q5M PRN Phase 1 or 2 - Pain Control Lactated Ringer's 1,000 mls @ 20 mls/hr 08/13/22 06:29 Lactated Ringers IV 09/12/22 06:30 .Q24H DARIUS Sodium Chloride 1,000 mls @ 20 mls/hr 08/13/22 06:29 08/13/22 11:05 Saline 0.9% IV 09/12/22 06:30 20 mls .Q24H DARIUS Administration Intake and Output 08/12/22 08/13/22 08/13/22 22:59 06:59 14:59 Intake Total 20 Balance 20 Intake: IV 20 Other: Weight 84.3 kg Patient Weight 08/14/22 06:59 Weight 84.3 kg 08/13/22 11:06 08/13/22 11:06
[2022-08-13] MEDS ORDERED: LIDOCAINE 1% INJ 10MG/ML (30 ML VIAL-PF) SQ ONE (12:44)
[2022-08-13] MEDS ORDERED: HEPARIN SOD,PORK IN 0.45% NACL 25,000 UNIT in 0.45% NACL 1 250ML.BAG IV ONE (12:45)
[2022-08-13] MEDS ORDERED: IOPAMIDOL-370 100ML BTL INJ ONE (14:49)
--- NOTE | 2022-08-13 15:02 | P.EPPROC ---
- EP Procedure Note Electrophysiology Procedure Note: PROCEDURE A. fib ablation, PVI, left atrial septal ablation and left atrial roof ablation DIAGNOSIS Persistent Atrial fibrillation, symptomatic, refractory to therapy with associated cardio myopathy RESULT No left atrial appendage mass seen on intracardiac echo, mild pericardial reaction noted Successful A. fib ablation/pulmonary vein isolation of all veins using cryo- ablation Complete entrance block in all 4 veins confirmed Left atrial septal and left atrial roof ablation No evidence for phrenic nerve injury Esophageal deflection YES , left-sided esophagus Electrical cardioversion for residual atrial tachycardia 230-250 ms with a synchronized shock across the chest YES / NO PROCEDURE DETAILS Patient was brought to the EP lab in a fasting state after obtaining written informed consent. Procedure performed under general anesthesia Esophagus was intubated. Esophageal temperature monitoring with circa catheter. Esophageal deflection with an endoscope to avoid hypothermia of the esophagus. After initial muscle relaxant use, muscle relaxants were not given thereafter in order to assess phrenic nerve during procedure. Patient prepped and draped as per protocol Cryo ablation-set up with standard preparation of the cryoablation tools done. Femoral Venous access obtained on the right and left groins and sheaths placed Diagnostic catheters for the high right atrium, phrenic nerve stimulation and pacing, His bundle, coronary sinus placed Intracardiac echo catheter placed. Long sheath placed in the right atrium Left and right transseptal catheterization performed under intracardiac echo guidance. Intravenous heparin with aCT above 300 Later, catheter positioning and balloon positioning in the left atrium and pulmonary veins, under intracardiac echo guidance Diagnostic EP study with coronary sinus pacing and recording Baseline measurements: Sinus cycle length: 142, PA interval 161, QRS 103 and daily for 87 AH 78 and HV 45 Transseptal catheterization performed RA pressure 9/3/6 LA pressure 12/3/7 Transseptal catheterization performed with standard sheath. The cryoablation sheath was then placed with an over the wire exchange without any acute complications. The cryoablation balloon was placed in the office of each pulmonary vein and all 4 pulmonary veins were isolated. IV dye was injected to confirm occlusion. Goal: achieve complete occlusion of the pulmonary vein, achieve -30 degrees C at 30 seconds and achieve -40 degrees C at 60 seconds and a time to effect of less than 60 seconds. If not, the balloon was repositioned to obtain this result After completion of Cryoblation with durations from 180-240 seconds, entrance block was confirmed with the Attain circular catheter in a roving fashion around the antrum of the pulmonary veins Phrenic nerve pacing was performed from the SVC, right innominate vein area and diaphragm voltage was monitored. Diaphragmatic contractions were also monitored manually for strength of contraction. At the end of the procedure the Achieve catheter was once again used to check for entrance block Left atrial septal ablation was performed. The achieve catheter was placed in the right middle vein to achieve septal ablation. Complete isolation around the septum was noted Urine ablation was performed with serial cryoablation lesions, overlapping, across the roof from the right superior to the left superior pulmonary veins Significant Diminution in the electrograms noted along the roof Phrenic nerve stimulation was performed to confirm diaphragmatic stimulation the end of the procedure Cine fluoroscopy was performed at the very end of the procedure to confirm movement of both diaphragms with inspiration and expiration The patient was in a residual atrial tachycardia 230-250 ms Rectal cardioversion performed to sinus rhythm At the end of the procedure the patient was extubated Venous sheaths were removed and hemostasis assured with a closure device PROCEDURES PERFORMED Diagnostic EP study CS pacing and recording Left and right transseptal catheterization Catheter the mapping of the tachycardia Intracardiac echocardiography Pulmonary vein isolation with transseptal and comprehensive EPS, [id number] Left atrial roof line, +[id number] Linear ablation, left atrium, +[id number] Electrical cardioversion with a synchronized shock across the chest [id number]
[2022-08-13] MEDS: LACTATED RINGERS 1,000 ML IV SCH (17:39)
[2022-08-13] MEDS ORDERED: ATORVASTATIN 40 MG TAB PO SCH (21:00)
[2022-08-13] MEDS ORDERED: ESCITALOPRAM 20 MG TAB PO SCH (21:00)
[2022-08-13] MEDS ORDERED: RIVAROXABAN 20 MG TAB PO SCH (21:00)
[2022-08-14 03:23] VITALS: TEMP 98.3
[2022-08-14] MEDS: LACTATED RINGERS 1,000 ML IV SCH (05:54)
[2022-08-14] MEDS: SODIUM CHLORIDE 0.9% 1,000 ML IV SCH (05:54)
[2022-08-14 07:14] VITALS: BP 115/69; PULSE 70; RESP 14
--- NOTE | 2022-08-14 08:16 | P.DS ---
Providers Attending physician: Prosper Lee Primary care physician: Stated None Hospital Course: Patient is doing well. No chest discomfort dizziness lightheadedness or palpitations Twelve-lead EKG is normal today On examination afebrile 98.3F blood pressure 107/68 mmHg Respirations normal Clear lungs no rhonchi no crackles Normal heart sounds no murmurs or gallops Rhythm is regular Groins of healed well no hematoma Impression Persistent atrial fibrillation Status post successful pulmonary vein isolation Ablation of left atrial septum Left atrial roof ablation successful Plan Continue anticoagulation with xarelto Continue other cardiac medications Follow-up with Dr. Valencia week Discharge home today by 10 AM if hemodynamically stable Plan - Discharge Summary Discharge Rx Participant: No New Discharge Prescriptions: Continue Escitalopram Oxalate [Lexapro] 20 mg PO HS Atorvastatin [Lipitor] 40 mg PO HS Rivaroxaban [Xarelto] 20 mg PO HS Metoprolol Tartrate [Lopressor] 50 mg PO BID Esomeprazole Magnesium [NexIUM 24Hr] 20 mg PO DAILY PRN PRN Reason: GERD Benazepril/Hydrochlorothiazide [Benazepril-Hctz 20-12.5 mg Tab] 1 each PO DAILY LORazepam [Ativan] 0.5 mg PO DAILY PRN PRN Reason: Anxiety Discharge Medication List Atorvastatin [Lipitor] 40 mg PO HS 01/25/16 [History] Escitalopram Oxalate [Lexapro] 20 mg PO HS 01/25/16 [History] Benazepril/Hydrochlorothiazide [Benazepril-Hctz 20-12.5 mg Tab] 1 each PO DAILY 01/09/22 [History] Esomeprazole Magnesium [NexIUM 24Hr] 20 mg PO DAILY PRN 01/09/22 [History] LORazepam [Ativan] 0.5 mg PO DAILY PRN 01/09/22 [History] Metoprolol Tartrate [Lopressor] 50 mg PO BID 01/09/22 [History] Rivaroxaban [Xarelto] 20 mg PO HS 01/09/22 [History] Follow up Appointment(s)/Referral(s): Jaz Valencia MD [STAFF PHYSICIAN] - 1 Week Activity/Diet/Wound Care/Special Instructions: Post EP study - Ablation instructions 1. Keep access sites dry for 2 days. 2. No heavy lifting or straining for 2 days. 3. Avoid bending the hips repeatedly for 2 days. 4. You may go up and down stairs slowly Call if the following is noted 1. Bleeding, increasing swelling or pain at the access sites. 2. Increasing chest discomfort, especially upon taking a deep breath. 3. Increasing shortness of breath, at rest or with exertion. 4. Undue cough / phlegm 5. Difficulty or pain while swallowing. 6. Pain or change in color in the extremities. 7. Fever, chills, rigors. 8. Increasing headache or neurologic symptoms. 9. Dizziness, fainting, palpitations Do not stop Xarelto Discharge Disposition: HOME SELF-CARE
[2022-08-14] MEDS ORDERED: lisinopriL 20 MG TAB PO SCH (09:00)
[2022-08-14] MEDS ORDERED: hydroCHLOROthiazide 12.5 MG CAP PO SCH (09:00)
== END 2022-08-14 10:52 | disposition home or self-care (01) ==
LOC: CATHEP 10:30 → 6NMEDSUR 14:41 → CATHEP 08-14 10:52
PROVIDERS: ATTEND Internal Medicine Clinical Cardiac Electrophysiology
DX: I48.19 Other persistent atrial fibrillation (principal); I42.8 Other cardiomyopathies; I34.0 Nonrheumatic mitral (valve) insufficiency; G47.33 Obstructive sleep apnea (adult) (pediatric); I42.0 Dilated cardiomyopathy; R01.1 Cardiac murmur, unspecified; I10 Essential (primary) hypertension; I73.00 Raynaud's syndrome without gangrene; Z20.822 Contact with and (suspected) exposure to COVID-19; E78.5 Hyperlipidemia, unspecified; Z72.0 Tobacco use; K21.9 Gastro-esophageal reflux disease without esophagitis; F41.9 Anxiety disorder, unspecified; Z87.891 Personal history of nicotine dependence; Z80.8 Family history of malignant neoplasm of other organs or systems; Z79.01 Long term (current) use of anticoagulants; Z79.899 Other long term (current) drug therapy
CPT/HCPCS: 92960; 93656; 93657; 80048; 85025; 87635; C1894 ×2; C1769 ×4; C1760; C1730 ×2; C1759; C1893; C1733; C1766; J2250; J0330; J1644 ×2; J2001 ×2; J3010; J2704; Q9967

== ENCOUNTER 2022-08-17 19:00 | Emergency (ER) | payer BC ==
[2022-08-17 19:23] VITALS: BP 109/74; PULSE 78; RESP 18; TEMP 98.4
--- NOTE | 2022-08-17 22:46 | ED ---
URI HPI - General Chief Complaint: Upper Respiratory Infection Stated Complaint: Fever,coughing,sent by asset protection greeter Time Seen by Provider: 08/17/22 20:43 Source: patient, RN notes reviewed Mode of arrival: ambulatory Limitations: no limitations - History of Present Illness Initial Comments: Patient is a 62-year-old male presenting to the emergency department at the direction of his asset protection greeter for fever and cough ongoing for approximately 2 days. He states that he had a cardiac ablation earlier in the week and had some generalized malaise and fatigue the day after his procedure. He states that he had a good day after that however upon further reflection he states that he was not feeling well enough to go to work at all this week and r eports that his symptoms seem to have gotten progressively worse in the last 24 hours. He can feel his heart racing at times but denies any palpitations currently. He reports intermittent dizziness and headaches but denies any headache at this time. He has shortness of breath associated with his cough but none while at rest. He denies any abdominal pain, nausea or vomiting does but does note decrease in oral intake. He reports fevers but is unsure of exact temperature. He has occasional chills but none at this time. In addition to his cardiac ablation for atrial fibrillation recently has past medical history significant for hypertension, hyperlipidemia, are not syndrome, sleep apnea, GERD and varicose veins. - Related Data Home Medications Medication Instructions Recorded Confirmed Atorvastatin [Lipitor] 40 mg PO HS 01/25/16 08/09/22 Escitalopram Oxalate [Lexapro] 20 mg PO HS 01/25/16 08/09/22 Benazepril/Hydrochlorothiazide 1 each PO DAILY 01/09/22 08/13/22 [Benazepril-Hctz 20-12.5 mg Tab] Esomeprazole Magnesium [NexIUM 20 mg PO DAILY PRN 01/09/22 08/09/22 24Hr] LORazepam [Ativan] 0.5 mg PO DAILY PRN 01/09/22 08/09/22 Metoprolol Tartrate [Lopressor] 50 mg PO BID 01/09/22 08/09/22 Rivaroxaban [Xarelto] 20 mg PO HS 01/09/22 08/09/22 Allergies Allergy/AdvReac Type Severity Reaction Status Date / Time No Known Allergies Allergy Verified 08/17/22 19:23 Review of Systems ROS Statement: Those systems with pertinent positive or pertinent negative responses have been documented in the HPI. ROS Other: All systems not noted in ROS Statement are negative. Past Medical History Past Medical History: Atrial Fibrillation, GERD/Reflux, Hyperlipidemia, Hypertension, Sleep Apnea/CPAP/BIPAP, Vascular Disorder Additional Past Medical History / Comment(s): SEE DR NGUYEN'S H&P. Uses CPAP. Varicose veins. Raynaud's History of Any Multi-Drug Resistant Organisms: None Reported Past Surgical History: Ablation, Hernia Repair Past Anesthesia/Blood Transfusion Reactions: No Reported Reaction Past Psychological History: Anxiety Smoking Status: Former smoker Past Alcohol Use History: Daily Past Drug Use History: None Reported - Past Family History Sister(s) Family Medical History: Cancer Additional Family Medical History / Comment(s): thyroid cancer General Exam General appearance: alert, in no apparent distress Head exam: Present: atraumatic, normocephalic, normal inspection Eye exam: Present: normal appearance, PERRL, EOMI. Absent: scleral icterus, conjunctival injection, periorbital swelling ENT exam: Present: normal exam, mucous membranes moist Neck exam: Present: normal inspection Respiratory exam: Present: normal lung sounds bilaterally. Absent: respiratory distress, wheezes, rales, rhonchi, stridor Cardiovascular Exam: Present: regular rate, normal rhythm, normal heart sounds. Absent: systolic murmur, diastolic murmur, rubs, gallop, clicks GI/Abdominal exam: Present: soft, normal bowel sounds. Absent: distended, tenderness, guarding, rebound, rigid Extremities exam: Absent: pedal edema, joint swelling Back exam: Present: normal inspection Neurological exam: Present: alert, oriented X3, CN II-XII intact Psychiatric exam: Present: normal affect, normal mood Skin exam: Present: warm, dry, intact, normal color. Absent: rash Course Vital Signs 08/17/22 19:19 Temperature 98.4 F Pulse Rate 78 Respiratory 18 Rate Blood Pressure 109/74 O2 Sat by Pulse 98 Oximetry Medical Decision Making - Medical Decision Making 62-year-old male presented to the emergency room with cough, body aches, headache, dizziness and fevers ongoing for approximately 48 hours. Triage workup included testing for Covid. Covid test positive. No indication for further diagnostic imaging or laboratory studies. Due to recent cardiac ablation and medications Paxlovid contraindicated. Discussed symptomatic management with patient at length. Return parameters to the emergency room and quarantining also reviewed at length. Patient agreeable for discharge home with symptomatic management and quarantining. Case discussed with Dr Owusu. - Lab Data Lab Results 08/17/22 Range/Units 19:25 Coronavirus (PCR) Detected A (Not Detectd) Disposition Clinical Impression: COVID-19 Disposition: HOME SELF-CARE Condition: Stable Instructions (If sedation given, give patient instructions): Upper Respiratory Infection (ED), COVID-19 (Coronavirus Disease 2019) (ED) Additional Instructions: Please quarantine for 5 days after testing positive and restart quarantine if symptoms worsen. Please utilize Tylenol as needed for fevers and pain. Taking vitamin C, Zinc, vitamin D 50 mcg, and melatonin may help symptom recovery. Please return to the Emergency Department if symptoms worsen or any other concerns. Is patient prescribed a controlled substance at d/c from ED?: No Referrals: None,Stated [Primary Care Provider] - 1-2 days Time of Disposition: 22:37
== END 2022-08-17 22:56 | disposition home or self-care (01) ==
LOC: EC 19:00
DX: U07.1 COVID-19 (principal); I48.91 Unspecified atrial fibrillation; K21.9 Gastro-esophageal reflux disease without esophagitis; E78.5 Hyperlipidemia, unspecified; I10 Essential (primary) hypertension; Z87.891 Personal history of nicotine dependence; Z79.899 Other long term (current) drug therapy
CPT/HCPCS: 87635; 99283

== ENCOUNTER → 2023-02-05 | Outpatient (CLI) | payer BC ==
--- NOTE | 2023-02-05 11:34 | CT ---
EXAMINATION TYPE: CT chest w con DATE OF EXAM: 02/05/2023 COMPARISON: Prior CT chest June 18, 2022 HISTORY: Lung nodule. Prior abnormal CT. CT DLP: 510 mGycm. Automated Exposure Control for Dose Reduction was Utilized. TECHNIQUE: CT scan of the thorax is performed following with IV Contrast, patient injected with 70ml mL of Isovue 300. FINDINGS: LUNGS: Stable 7 x 5 mm peripheral left lower lobe nodule axial image 46 no new or enlarging greater t rhoades 5 mm pulmonary nodules. Lungs remain clear. There is no pleural effusion or pneumothorax seen. The tracheobronchial tree is patent. MEDIASTINUM: There are no greater than 1 cm hilar or mediastinal lymph nodes. No cardiomegaly or pe ricardial effusion is seen. Stable ascending aortic aneurysm up to 4.4 cm. OTHER: A few simple-appearing thin-walled cysts in the right kidney are redemonstrated axial image 68 unchanged from prior study. IMPRESSION: Stable 7 x 5 mm peripheral left lower lobe nodule. No new or enlarging nodules.
== END | disposition home or self-care (01) ==
LOC: RADCTMAIN 10:33
PROVIDERS: ATTEND Internal Medicine
DX: R91.1 Solitary pulmonary nodule (principal)
CPT/HCPCS: 71260; Q9967

== ENCOUNTER → 2024-01-28 | Outpatient (CLI) | payer MEDICARE ==
--- NOTE | 2024-01-29 12:48 | CT ---
Exam: CTA CHEST, CT ABDOMEN AND PELVIS WITH CONTRAST. Date: 01/28/2024. Comparison: CT chest on 02/05/2023. History: Follow-up for aneurysm. Technique: CT of the chest, abdomen and pelvis were obtained without and following the administration of 100 mL of Isovue-[address] dose lowering techniques were used, to include: automated exposure control, adjustment for patient size, and/or use of iterative reconstruction. Maximum intens ity projection reformats were also performed. FINDINGS: Mediastinum and Gilma: There is no axillary, mediastinal or hilar lymphadenopathy. Pleural and Pericardial spaces: There are no pleural or pericardial effusions. Upper Abdomen: The visualized upper abdomen is unremarkable. Cardiovascular: Dilation of ascending thoracic aorta up to 4.6 cm in diameter is unchanged when rei red to the previous examination. Pulmonary Artery: There are no filling defects in the pulmonary arteries. Lung Parenchyma and Airways: Unchanged 5 mm nodule in the left lower lobe on series 3 image 46. No ne w or enlarging nodules are seen. The lungs otherwise appear clear. ABDOMEN: Liver and Biliary system: Normal. Adrenal glands: Normal. Kidneys and ureters: Normal. Spleen: Normal. Pancreas: Normal. Gallbladder: Normal. Lymph nodes, Peritoneum and mesentery: There is no mesenteric or retroperitoneal lymphadenopathy. Gastrointestinal tract: There are no dilated loops of bowel or free intraperitoneal air. The appe ndix is not clearly seen with no secondary changes of appendicitis identified. Aorta/IVC: There is moderate vascular calcification throughout the abdominal aorta without evidence of aneurysmal dilation or dissection. IVC normal. Abdominal wall: Normal. PELVIS: Fluid: There is no free fluid in the pelvis. Lymph Nodes: There is no pelvic or inguinal lymphadenopathy.. Urinary bladder: Normal. BONES: Mild scattered degenerative facet changes are seen throughout the lumbar spine. There are no acute osseous abnormalities. ADDITIONAL SIGNIFICANT FINDINGS: None. IMPRESSION: 1. Unchanged dilation of the ascending thoracic aorta. 2. No evidence of aortic dissection. 3. Unchanged left lower lobe pulmonary nodule. No further follow-up needed for this nodule. 4. Right renal cysts as above. 5. No acute process otherwise seen within the chest, abdomen or pelvis.
== END | disposition home or self-care (01) ==
LOC: RADCTMAIN 11:41
PROVIDERS: ATTEND Internal Medicine
DX: R10.813 Right lower quadrant abdominal tenderness (principal); R91.1 Solitary pulmonary nodule; N28.1 Cyst of kidney, acquired
CPT/HCPCS: 74177; 36415; Q9967

== ENCOUNTER → 2024-01-28 | Outpatient (CLI) | payer MEDICARE ==
[2024-01-28 12:40] LABS: Basophils # (A) 0.1 k/uL (0-0.2); Basophils % (A) 1 %; Eosinophils # (A) 0.3 k/uL (0-0.7); Eosinophils % (A) 4 %; HCT 42.6 % (39.0-53.0); HGB 14.5 gm/dL (13.0-17.5); Lymphocytes # (A) 1.3 k/uL (1.0-4.8); Lymphocytes % (A) 18 %; MCH 32.1 pg (25.0-35.0); MCV 94.5 fL (80.0-100.0); Mean Platelet Volume 7.9; Monocytes # (A) 0.6 k/uL (0-1.0); Monocytes % (A) 9 %; Neutrophils # (A) 4.6 k/uL (1.3-7.7); Neutrophils % (A) 64 %; Platelet Count 281 k/uL (150-450); RBC 4.51 m/uL (4.30-5.90); RDW 12.8 % (11.5-15.5); WBC 7.1 k/uL (3.8-10.6)
[2024-01-28 12:48] LABS: ALT 27 U/L (4-49); AST 29 U/L (17-59); African American GFR (CKD) >90 (>60 ml/min/1.73 sqM); Albumin 4.4 g/dL (3.5-5.0); Albumin/Globulin Ratio 1.4; Alkaline Phosphatase 59 U/L (38-126); Anion Gap 8 mmol/L; Blood Urea Nitrogen 17 mg/dL (9-20); Calcium 9.3 mg/dL (8.4-10.2); Carbon Dioxide 28 mmol/L (22-30); Chloride 103 mmol/L (98-107); Globulin 3.1 g/dL; Glucose 95 mg/dL (74-99); Lipase 68 U/L (23-300); Non-African American GFR(CKD) 85 (>60 ml/min/1.73 sqM); Potassium 4.5 mmol/L (3.5-5.1); Sodium 139 mmol/L (137-145); Total Bilirubin 0.6 mg/dL (0.2-1.3); Total Protein 7.5 g/dL (6.3-8.2)
--- NOTE | 2024-01-29 12:48 | CT ---
Exam: CTA CHEST, CT ABDOMEN AND PELVIS WITH CONTRAST. Date: 01/28/2024. Comparison: CT chest on 02/05/2023. History: Follow-up for aneurysm. Technique: CT of the chest, abdomen and pelvis were obtained without and following the administration of 100 mL of Isovue-[address] dose lowering techniques were used, to include: automated exposure control, adjustment for patient size, and/or use of iterative reconstruction. Maximum intensity projection reformats were also performed. FINDINGS: Mediastinum and Gilma: There is no axillary, mediastinal or hilar lymphadenopathy. Pleural and Pericardial spaces: There are no pleural or pericardial effusions. Upper Abdomen: The visualized upper abdomen is unremarkable. Cardiovascular: Dilation of ascending thoracic aorta up to 4.6 cm in diameter is unchanged when compared to the previous examination. Pulmonary Artery: There are no filling defects in the pulmonary arteries. Lung Parenchyma and Airways: Unchanged 5 mm nodule in the left lower lobe on series 3 image 46. No new or enlarging nodules are seen. The lungs otherwise appear clear. ABDOMEN: Liver and Biliary system: Normal. Adrenal glands: Normal. Kidneys and ureters: Normal. Spleen: Normal. Pancreas: Normal. Gallbladder: Normal. Lymph nodes, Peritoneum and mesentery: There is no mesenteric or retroperitoneal lymphadenopathy. Gastrointestinal tract: There are no dilated loops of bowel or free intraperitoneal air. The appendix is not clearly seen with no secondary changes of appendicitis identified. Aorta/IVC: There is moderate vascular calcification throughout the abdominal aorta without evidence of aneurysmal dilation or dissection. IVC normal. Abdominal wall: Normal. PELVIS: Fluid: There is no free fluid in the pelvis. Lymph Nodes: There is no pelvic or inguinal lymphadenopathy.. Urinary bladder: Normal. BONES: Mild scattered degenerative facet changes are seen throughout the lumbar spine. There are no acute osseous abnormalities. ADDITIONAL SIGNIFICANT FINDINGS: None. IMPRESSION: 1. Unchanged dilation of the ascending thoracic aorta. 2. No evidence of aortic dissection. 3. Unchanged left lower lobe pulmonary nodule. No further follow-up needed for this nodule. 4. Right renal cysts as above. 5. No acute process otherwise seen within the chest, abdomen or pelvis. MTDD
== END | disposition home or self-care (01) ==
LOC: RADCTMAIN 11:39
PROVIDERS: ATTEND Internal Medicine Interventional Cardiology
DX: I71.21 Aneurysm of the ascending aorta, without rupture (principal); N28.1 Cyst of kidney, acquired; R91.1 Solitary pulmonary nodule
CPT/HCPCS: 71275; 80053; 83690; 85025

== ENCOUNTER → 2025-02-14 | Outpatient (CLI) | payer MEDICARE ==
[2025-02-14 07:52] LABS: African American GFR (CKD) >90 (>60 ml/min/1.73 sqM); Blood Urea Nitrogen 15 mg/dL (9-20); Non-African American GFR(CKD) 85 (>60 ml/min/1.73 sqM)
--- NOTE | 2025-02-14 08:56 | CT ---
EXAMINATION TYPE: CT angio chest DATE OF EXAM: 02/14/2025 8:40 AM COMPARISON: 01/28/2024. CLINICAL INDICATION: Male, 64 years old with history of I71.20 THORACIC AORTIC ANEURYSM, WITHOUT RUPT URE,; thoracic aortic aneurysm TECHNIQUE/CONTRAST: CTA scan of the thorax is performed without and with IV Contrast, patient injected with 100 ml mL of Isovue 370, MIP images are created and reviewed these are created on a separate workstation.. CT DLP: 733.20 mGycm, Automated exposure control for dose reduction was used. FINDINGS: Lungs/Pleura: No evidence of focal consolidation, pleural effusion or pneumothorax. stable left lower lobe 4 mm nodule back to [id number]. Left upper lung calcified granuloma. Airway: Large airways are patent. Heart: Size within normal limits. No significant coronary artery calcifications. Vasculature: No evidence for intramural hematoma on noncontrast imaging. No evidence of intimal flap to suggest dissection. No aneurysm identified. Ectasia of ascending thoracic aorta up to 47 mm and di lation up to a marisol aortic root 48 mm. Similar scattered atherosclerotic disease. There is no eviden ce for a filling defect within the pulmonary vasculature to suggest acute pulmonary embolism. The pu lmonary artery is of normal size. Mediastinum: No gross evidence of adenopathy. Musculoskeletal: No acute osseous abnormalities Soft Tissues/lymph nodes: Unremarkable. Lower neck: No significant findings. Upper Abdomen: Right renal cortical cysts. No follow-up recommended. IMPRESSION: 1. Similar ascending thoracic aorta ectasia/borderline aneurysmal dilation up to 49 mm. 2. Mild cardiomegaly. 3. Stable left lower lobe 4 mm pulmonary nodule. No follow-up recommended. Follow up recommendations for incidental pulmonary nodules, if there are any, are per [employer] or [employer]. https://radiopaedia.org/articles/[email or web address]?lang=us [facility], , 02/14/2025 8:54 AM
== END | disposition home or self-care (01) ==
LOC: RADCTMAIN 06:59
PROVIDERS: ATTEND Internal Medicine Interventional Cardiology
DX: I71.20 Thoracic aortic aneurysm, without rupture, unspecified (principal); I51.7 Cardiomegaly; R91.1 Solitary pulmonary nodule
CPT/HCPCS: 82565; 84520; 71275; Q9967